=== PATIENT | female | born 1955 | race Caucasian/White ===

== ENCOUNTER 2016-06-13 16:16 | Outpatient (CLI) ==
[2016-04-10 14:36] VITALS: BMI 29.6
[2016-06-13 17:34] LABS: FLU INTERNAL QC INTERNAL QC VALID; RAPID FLU A NEGATIVE (NEGATIVE); RAPID FLU B NEGATIVE (NEGATIVE)
== END 2016-06-13 16:17 | disposition home or self-care (01) ==
LOC: LAB 16:16
PROVIDERS: ATTEND Nurse Practitioner Family
DX: R05 Cough (principal)
CPT/HCPCS: 87651; 87804; 87880

== ENCOUNTER 2016-06-28 15:06 | Outpatient (CLI) ==
[2016-04-10 14:36] VITALS: BMI 29.6
[2016-06-28 15:30] LABS: BASOPHILS % (AUTO) 0.3 % (0.0-3.0); EOSINOPHILS # (AUTO) 0.3 K/ul (0.0-0.7); EOSINOPHILS % (AUTO) 2.4 % (0.0-7.0); HEMATOCRIT 38.8 % (37.0-47.0); HEMOGLOBIN 13.5 g/dl (12.0-16.0); IMMATURE GRANULOCYTE % (AUTO) 0.3 % (0.0-5.0); LYMPHOCYTES # (AUTO) 2.5 K/uL (0.60-3.4); LYMPHOCYTES % (AUTO) 23.4 (10.0-50.0); MEAN CORPUSCULAR HEMOGLOBIN 29.6 pg (27.0-31.0); MEAN CORPUSCULAR HGB CONC 34.8 (31.8-35.4); MEAN CORPUSCULAR VOLUME 85.1 fl (81.0-99.0); MONOCYTES # (AUTO) 0.6 K/uL (0.4-2.0); MONOCYTES % (AUTO) 5.4 (0-10); NEUTROPHILS # (AUTO) 7.2 K/ul (2.0-6.9); NEUTROPHILS % (AUTO) 68.2; PLATELET COUNT 280 10^3/uL (140-440); RED BLOOD COUNT 4.56 10^6/ul (4.20-5.40); WHITE BLOOD COUNT 10.51 K/ul (4.6-10.2)
[2016-06-28 15:39] LABS: BILIRUBIN,URINE Negative (NEGATIVE); KETONES,URINE Negative (NEGATIVE); LEUKOCYTE ESTERASE ,URINE 1+ (NEGATIVE); NITRITE,URINE Negative (NEGATIVE); PH,URINE 5.5 (5-9); PROTEIN,URINE Negative (NEGATIVE); URINE, BLOOD 3+ (NEGATIVE)
[2016-06-28 15:44] LABS: ADD URINE MICROSCOPIC YES
[2016-06-28 15:50] LABS: ALBUMIN 3.8 g/dL (3.4-5.0); ALBUMIN/GLOBULIN RATIO 0.93; ANION GAP 13.5; BACTERIA,URINE 2+ (NOT PRESENT); BILIRUBIN,TOTAL 0.33 mg/dL (0.00-1.20); BUN/CREATININE RATIO 10.71; CALCIUM 9.1 mg/dL (8.2-10.2); CREATININE 0.84 mg/dL (0.60-1.30); POTASSIUM 3.5 mmol/L (3.5-5.10); TOTAL PROTEIN 7.9 g/dL (5.8-8.1)
--- NOTE | 2016-06-28 15:53 | DI ---
Examination: Two radiographic images of the chest. Comparison: 12/03/2015. Reason for study: Generalized abdominal pain. FINDINGS: No pneumothorax, pleural effusion, or focal consolidation. The cardiac silhouette is not enlarged. Mild degenerative disease is seen in the thoracic spine. Impression: No acute cardiopulmonary findings.
--- NOTE | 2016-06-28 16:01 | CT ---
Examination: Noncontrast CT imaging of the abdomen pelvis with axial, sagittal, and coronal reconst ructions. Comparison: 12/03/2015. Reason for study: Generalized abdominal pain. FINDINGS: Within the partially imaged lung bases. There are no pneumothoraces, pleural effusions, focal consolidations. The heart is not enlarged. Imaging of the abdominal organs is limited by lack of intravenous contrast. No gross abnormality is seen within the liver, spleen, adrenal glands, gallbladder, and pancreas. Th e liver is lower in attenuation in the spleen. The kidneys are grossly unremarkable without hydrone phrosis, hydroureter, or nephrolithiasis. There is no focal bowel dilatation or transition point. There are no inflammatory changes in the me senteric fat. No intra-abdominal free air or pelvic free fluid. The pelvic structures are unremark able. Impression: 1. No acute imaging findings in the abdomen or pelvis. 2. Hepatic steatosis.
== END 2016-06-28 15:07 | disposition home or self-care (01) ==
LOC: RAD 15:06
PROVIDERS: ATTEND Nurse Practitioner Family
DX: R10.84 Generalized abdominal pain (principal); R30.0 Dysuria; E11.9 Type 2 diabetes mellitus without complications
CPT/HCPCS: 36415; 80053; 81001; 82150; 83690; 85025; 87086; 87186

== ENCOUNTER 2016-08-07 09:45 | Outpatient (CLI) ==
[2016-04-10 14:36] VITALS: BMI 29.6
[2016-08-07 15:03] LABS: BASOPHILS # (AUTO) 0.1 K/uL (0-0.2); BASOPHILS % (AUTO) 0.7 % (0.0-3.0); EOSINOPHILS # (AUTO) 0.4 K/ul (0.0-0.7); EOSINOPHILS % (AUTO) 5.8 % (0.0-7.0); HEMATOCRIT 38.1 % (37.0-47.0); HEMOGLOBIN 13.1 g/dl (12.0-16.0); IMMATURE GRANULOCYTE % (AUTO) 0.4 % (0.0-5.0); LYMPHOCYTES % (AUTO) 25.9 (10.0-50.0); MEAN CORPUSCULAR HEMOGLOBIN 29.3 pg (27.0-31.0); MEAN CORPUSCULAR HGB CONC 34.4 (31.8-35.4); MEAN CORPUSCULAR VOLUME 85.2 fl (81.0-99.0); MONOCYTES # (AUTO) 0.7 K/uL (0.4-2.0); MONOCYTES % (AUTO) 8.5 (0-10); NEUTROPHILS # (AUTO) 4.5 K/ul (2.0-6.9); NEUTROPHILS % (AUTO) 58.7; PLATELET COUNT 297 10^3/uL (140-440); RED BLOOD COUNT 4.47 10^6/ul (4.20-5.40); WHITE BLOOD COUNT 7.62 K/ul (4.6-10.2)
[2016-08-07 15:08] LABS: BILIRUBIN,URINE Negative (NEGATIVE); KETONES,URINE Negative (NEGATIVE); LEUKOCYTE ESTERASE ,URINE Negative (NEGATIVE); NITRITE,URINE Negative (NEGATIVE); PROTEIN,URINE Negative (NEGATIVE); URINE, BLOOD Trace-intact (NEGATIVE)
[2016-08-07 15:12] LABS: ADD URINE MICROSCOPIC YES
[2016-08-07 15:31] LABS: ALBUMIN 3.8 g/dL (3.4-5.0); ALBUMIN/GLOBULIN RATIO 0.93; BILIRUBIN,TOTAL 0.6 mg/dL (0.00-1.20); BUN/CREATININE RATIO 14.77; CALCIUM 9.7 mg/dL (8.2-10.2); CHOL/HDL RATIO 3.9 (4.5-5.5); CREATININE 0.88 mg/dL (0.60-1.30); TOTAL PROTEIN 7.9 g/dL (5.8-8.1)
== END 2016-08-07 09:46 | disposition home or self-care (01) ==
LOC: LAB 09:45
PROVIDERS: ATTEND General Practice
DX: E11.40 Type 2 diabetes mellitus with diabetic neuropathy, unspecified (principal); E78.5 Hyperlipidemia, unspecified; R10.13 Epigastric pain; Z79.899 Other long term (current) drug therapy
CPT/HCPCS: 36415; 80053; 80061; 81001; 82150; 83036; 83690; 85025

== ENCOUNTER 2016-08-12 20:29 | Emergency (ER) ==
[2016-08-12 20:40] VITALS: BP 134/94; TEMP 98.6; BMI 29.3
[2016-08-12 20:53] LABS: BASOPHILS % (AUTO) 0.3 % (0.0-3.0); EOSINOPHILS # (AUTO) 0.6 K/ul (0.0-0.7); EOSINOPHILS % (AUTO) 8.7 % (0.0-7.0); HEMATOCRIT 37.6 % (37.0-47.0); HEMOGLOBIN 12.4 g/dl (12.0-16.0); IMMATURE GRANULOCYTE % (AUTO) 0.4 % (0.0-5.0); LYMPHOCYTES # (AUTO) 2.7 K/uL (0.60-3.4); LYMPHOCYTES % (AUTO) 37.1 (10.0-50.0); MEAN CORPUSCULAR HEMOGLOBIN 28.4 pg (27.0-31.0); MONOCYTES # (AUTO) 0.5 K/uL (0.4-2.0); MONOCYTES % (AUTO) 6.9 (0-10); NEUTROPHILS # (AUTO) 3.3 K/ul (2.0-6.9); NEUTROPHILS % (AUTO) 46.6; PLATELET COUNT 343 10^3/uL (140-440); RED BLOOD COUNT 4.37 10^6/ul (4.20-5.40); WHITE BLOOD COUNT 7.15 K/ul (4.6-10.2)
[2016-08-12 21:03] LABS: BILIRUBIN,URINE Negative (NEGATIVE); KETONES,URINE Negative (NEGATIVE); LEUKOCYTE ESTERASE ,URINE Trace (NEGATIVE); NITRITE,URINE Negative (NEGATIVE); PROTEIN,URINE Negative (NEGATIVE); URINE, BLOOD Negative (NEGATIVE)
[2016-08-12 21:09] LABS: ADD URINE MICROSCOPIC YES
[2016-08-12 21:10] LABS: ABG PH 7.387 (7.35-7.45)
[2016-08-12 21:11] LABS: ABG BASE EXCESS 0 (-2.0-2.0); ABG HCO3 25.5 (22.0-26.0); ABG PCO2 42.4 mmHg (35-45); ABG TCO2 27 (22.0-28.0)
[2016-08-12 21:12] LABS: ALBUMIN 3.6 g/dL (3.4-5.0); ALBUMIN/GLOBULIN RATIO 0.97; ANION GAP 12.8; BILIRUBIN,TOTAL 0.18 mg/dL (0.00-1.20); BUN/CREATININE RATIO 13.48; CALCIUM 9.6 mg/dL (8.2-10.2); CREATININE 0.89 mg/dL (0.60-1.30); POTASSIUM 3.8 mmol/L (3.5-5.10); TOTAL PROTEIN 7.3 g/dL (5.8-8.1)
--- NOTE | 2016-08-12 21:24 | ED.PDOC ---
General ED Provider: Dr. HARPAL FISH-ER Chief Complaint: Diabetes Stated Complaint: my blood sugar was over 300 and it scared me Time Seen by Physician: 20:35 Mode of Arrival: Walk-In Information Source: Patient Exam Limitations: No limitations Primary [facility] Nursing and Triage Documentation Reviewed and Agree: Yes Miscellaneous Complaint Exam - Complex/Multi-System Complaint/Exam Onset/Duration: tdoay Symptoms Are: Still present Initial Severity: Mild Current Severity: None Location of Pain: no pain Associated Signs and Symptoms: Denies: Decreased responsiveness, Confusion, Agitation, Dizziness, Weakness, Syncope, Headache, Short of air, Cough, Wheezing , Hemoptysis, Chest pain, Palpitations, Edema, Nausea, Vomiting, Diarrhea, Abdominal pain, Back pain, Dysuria, Hematemesis, Melena, Decreased oral intake, Fever, Diaphoresis, Immunocompromised, Anticoagulation Therapy, Recent medication changes, Indwelling medical staff coordinator, Prior MRSA, Prior VRE, Recent trauma, Remote trauma Recent Echo/LV Function: No JVD Present: No Tachypnea Present: No Stridor Present: No Abdominal Findings: Present: Normal findings Glascow Coma Scale (see protocol): 15 Meningeal Signs Positive: No Focal Weakness: Present: None Focal Sensory Loss: Present: None Gait: Normal Gag Reflex Present: Yes Babinski Sign: Negative Right, Negative Left Skin Findings: Present: Normal findings Joint Swelling Present: No In-Dwelling Device Present: No Differential Diagnosis: Metabolic Abnormality Quality Indicator For Non-Traumatic Chest Pain/Syncope: EKG Performed Review of Systems - Review Of Systems Constitutional: Reports: No symptoms Eyes: Reports: No symptoms Ears, Nose, Mouth, Throat: Reports: No symptoms Respiratory: Reports: No symptoms Cardiac: Reports: No symptoms GI: Reports: No symptoms : Reports: No symptoms Musculoskeletal: Reports: No symptoms Skin: Reports: No symptoms Neurological: Reports: No symptoms Endocrine: Reports: No symptoms Hematologic/Lymphatic: Reports: No symptoms All Other Systems: Reviewed and Negative Past Medical History - Past Medical History Previously Healthy: Yes Endocrine: Reports: None Cardiovascular: Reports: Hypertension Respiratory: Reports: None Hematological: Reports: None Gastrointestinal: Reports: GERD Genitourinary: Reports: None Neuro/Psych: Reports: Migraine Musculoskeletal: Reports: None Cancer: Reports: None Last Menstrual Period: UNKNOWN - Surgical History General Surgical History: Reports: Tubal ligation - Family History Family History: Reports: Unknown - Social History Smoking Status: Never smoker Hx Substance Use: No Alcohol Screening: None - Immunizations Tetanus Shot up to Date: Yes Physical Exam - Physical Exam Appearance: Well-appearing, No pain distress, Well-nourished Eyes: JANET, EOMI, Conjunctiva clear ENT: Ears normal, Nose normal, Oropharynx normal Neck: Supple Respiratory: Airway patent, Breath sounds clear, Breath sounds equal, Respirations nonlabored Cardiovascular: RRR, Pulses normal, No rub, No murmur GI/: Soft, Nontender, No masses, Bowel sounds normal, No Organomegaly Musculoskeletal: Normal strength Skin: Warm, Dry, Normal color Neurological: Sensation intact, Motor intact, Reflexes intact, Cranial nerves intact, Alert, Oriented Psychiatric: Affect appropriate, Mood appropriate Critical Care Note - Critical Care Note Total Time (mins): 0 Course - Course Hematology/Chemistry: 08/12/16 20:45 08/12/16 20:45 Orders, Labs, Meds: Lab Review 08/12/16 08/12/16 08/12/16 20:41 20:45 21:00 WBC 7.15 RBC 4.37 Hgb 12.4 Hct 37.6 MCV 86.0 MCH 28.4 MCHC 33.0 RDW Coeff of Mary 12.5 Plt Count 343 Immature Gran % (Auto) 0.4 Neut % (Auto) 46.6 Lymph % (Auto) 37.1 [place] % (Auto) 6.9 Eos % (Auto) 8.7 H Baso % (Auto) 0.3 Immature Gran # (Auto) 0.0 Neut # 3.3 Lymph # 2.7 [place] # 0.5 Eos # 0.6 Baso # 0.0 Puncture Site Lb O2 Saturation 93.0 L ABG pH 7.387 ABG pCO2 42.4 ABG pO2 68.0 L ABG HCO3 25.5 ABG Total CO2 27 ABG Base Excess 0 Mick Test + FiO2 % 21.0 Sodium 139 Potassium 3.8 Chloride 103 Carbon Dioxide 27 Anion Gap 12.8 BUN 12 Creatinine 0.89 Estimated GFR (MDRD) 64.00 BUN/Creatinine Ratio 13.48 Glucose 240 H Calcium 9.6 Total Bilirubin 0.18 AST 15 ALT 13 Alkaline Phosphatase 69 Total Protein 7.3 Albumin 3.6 Globulin 3.7 Albumin/Globulin Ratio 0.97 Urine Color Yellow Urine Clarity Clear Urine pH 5.0 Ur Specific [place] 1.010 Urine Protein Negative Urine Glucose (UA) 1+ Urine Ketones Negative Urine Blood Negative Urine Nitrite Negative Urine Bilirubin Negative Urine Urobilinogen 0.2 Ur Leukocyte Esterase Trace Urine Microscopic WBC 2-5 Ur Squamous Epith Cells 0-2 Orders Category Date Time Status ABG DRAW REQUEST Stat CARDIO 08/12/16 20:41 Ordered EKG-(ED ONLY) Stat CARDIO 08/12/16 20:41 Ordered ACCUCHECK (ED) [ED ACCUCHECK ASSESSMENT] .ONCE EMERGENCY 08/12/16 20:42 Active [employer] [ED WHISKEY FILTERER APPLIED] .ONCE EMERGENCY 08/12/16 20:41 Active ABG Stat LAB 08/12/16 20:41 Completed CBC W/ AUTO DIFF Stat LAB 08/12/16 20:45 Completed COMPREHENSIVE METABOLIC PANEL Stat LAB 08/12/16 20:45 Completed URINALYSIS C & S IF INDICATED Stat LAB 08/12/16 21:00 Completed Vital Signs: Temp Pulse Resp BP Pulse Ox 08/12/16 20:31 98.6 F 77 18 134/94 H 96 Departure - Departure Time of Disposition: 21:23 Disposition: HOME SELF-CARE Discharge Problem: DM type 2 (diabetes mellitus, type 2) Qualifiers: Diabetes mellitus complication status: without complication Diabetes mellitus manager intermediate insulin use: without alf use Qualifier Code: (E11.9) Type 2 diabetes mellitus without complications Instructions: Type 2 Diabetes in Adults (ED) Condition: Good Pt referred to PMD for follow-up: Yes Additional Instructions: f/u with your md--go ahead and take metformin this evening Allergies/Adverse Reactions: Allergies codeine Allergy (Severe, Verified 08/12/16 20:36) Itching Patient states she has side effects to several pain medications. She cannot remember the names. Home Medications: Ambulatory Orders Ondansetron HCl [Zofran Tab] 4 mg PO Q8H PRN #14 tablet 12/03/15 Disposition Discussed With: Patient
== END 2016-08-12 21:33 | disposition home or self-care (01) ==
LOC: ED 20:29
DX: E11.65 Type 2 diabetes mellitus with hyperglycemia (principal); I10 Essential (primary) hypertension; Z79.899 Other long term (current) drug therapy
CPT/HCPCS: 36415; 80053; 81001; 82803; 82962; 85025; 93005; 93010; 99284

== ENCOUNTER 2016-08-17 15:15 | Outpatient (CLI) ==
[2016-08-17 15:29] LABS: OCCULT BLOOD INTERNAL QC 1 INTERNAL QC VALID; OCCULT BLOOD SAMPLE 1 NEGATIVE (NEGATIVE)
[2016-08-17 15:38] LABS: OCCULT BLOOD INTERNAL QC 2 INTERNAL QC VALID; OCCULT BLOOD INTERNAL QC 3 INTERNAL QC VALID; OCCULT BLOOD SAMPLE 2 NO SPECIMEN RECEIVED (NEGATIVE); OCCULT BLOOD SAMPLE 3 NO SPECIMEN RECEIVED (NEGATIVE)
== END 2016-08-17 15:16 | disposition home or self-care (01) ==
LOC: LAB 15:15
PROVIDERS: ATTEND General Practice
DX: R10.812 Left upper quadrant abdominal tenderness (principal)
CPT/HCPCS: 82272

== ENCOUNTER 2016-08-28 07:58 | Outpatient (CLI) ==
--- NOTE | 2016-08-29 10:04 | MAMMO ---
EXAM: Bilateral digital screening mammogram History: Baseline Screening Comparison: None available. Findings: MLO and CC views of bilateral breasts demonstrate scattered fibroglandular breast parench yma. There are no dominant masses, no suspicious microcalcifications and no architectural distortio ns Impression: Negative mammogram. Recommend followup routine screening mammography in 1 year. BIRADS 1
== END 2016-08-28 07:59 | disposition home or self-care (01) ==
LOC: RAD 07:58
PROVIDERS: ATTEND General Practice
DX: Z12.31 Encounter for screening mammogram for malignant neoplasm of breast (principal)

== ENCOUNTER 2016-09-19 16:38 | Outpatient (CLI) | payer OTHER ==
[2016-09-19 17:33] LABS: ANION GAP 14.9; BUN/CREATININE RATIO 15.29; CALCIUM 10.2 mg/dL (8.2-10.2); CREATININE 0.85 mg/dL (0.60-1.30); PHOSPHORUS 4.2 mg/dL (2.8-4.1); POTASSIUM 3.9 mmol/L (3.5-5.10)
== END 2016-09-19 16:39 | disposition home or self-care (01) ==
LOC: LAB 16:38
PROVIDERS: ATTEND General Practice
DX: E11.9 Type 2 diabetes mellitus without complications (principal)
CPT/HCPCS: 36415; 80069; 83036

== ENCOUNTER 2017-09-09 16:03 | Outpatient (CLI) ==
[2017-02-25 17:09] VITALS: BMI 13.1
== END 2017-09-09 16:04 | disposition home or self-care (01) ==
LOC: FCC-LAB 16:03
PROVIDERS: ATTEND General Practice
DX: R10.13 Epigastric pain (principal); Z79.899 Other long term (current) drug therapy; E11.9 Type 2 diabetes mellitus without complications; E78.5 Hyperlipidemia, unspecified
CPT/HCPCS: 36415; 80053; 80061; 81001; 83036; 85025

== ENCOUNTER 2017-09-10 08:09 | Outpatient (CLI) ==
[2017-02-25 17:09] VITALS: BMI 13.1
--- NOTE | 2017-09-10 09:49 | US ---
EXAM: ULTRASOUND ABDOMEN LIMITED HISTORY: Epigastric abdominal pain FINDINGS: Ultrasound abdomen, limited. Segal-scale ultrasound and color Doppler was performed. Live r size was measured at 14.5 cm, within normal limits. The liver parenchyma demonstrated normal sonogr aphic appearance without evidence of intrahepatic biliary dilatation or focal lesion. Patent and hepa topedal main portal vein. No evidence of gallbladder stones or sludge. Gallbladder wall thickness was normal at 0.3 centimeter s and the common duct diameter normal at 0.33 centimeters. The visualized portions of the pancreas appeared unremarkable. IMPRESSION: Findings within normal limits.
== END 2017-09-10 08:10 | disposition home or self-care (01) ==
LOC: RAD 08:09
PROVIDERS: ATTEND General Practice
DX: R10.13 Epigastric pain (principal)

== ENCOUNTER 2017-09-18 12:35 | Outpatient (CLI) | payer OTHER ==
[2017-02-25 17:09] VITALS: BMI 13.1
== END 2017-09-18 12:36 | disposition home or self-care (01) ==
LOC: FCC-LAB 12:35
PROVIDERS: ATTEND General Practice
DX: E78.2 Mixed hyperlipidemia (principal)
CPT/HCPCS: 36415; 80061

== ENCOUNTER 2017-10-10 13:50 | Outpatient (CLI) | payer OTHER ==
[2017-02-25 17:09] VITALS: BMI 13.1
== END 2017-10-10 13:51 | disposition home or self-care (01) ==
LOC: FCC-LAB 13:50
PROVIDERS: ATTEND General Practice
DX: J02.9 Acute pharyngitis, unspecified (principal); R50.9 Fever, unspecified
CPT/HCPCS: 87651; 87804

== ENCOUNTER 2017-10-17 13:18 | Outpatient (CLI) ==
[2017-10-17 14:39] VITALS: BMI 28.5
== END 2017-10-17 13:19 | disposition home or self-care (01) ==
LOC: DIETCN 13:18
PROVIDERS: ATTEND General Practice
DX: E11.9 Type 2 diabetes mellitus without complications (principal); E78.5 Hyperlipidemia, unspecified; K21.9 Gastro-esophageal reflux disease without esophagitis
CPT/HCPCS: 97802

== ENCOUNTER 2017-12-25 12:05 | Outpatient (CLI) | END 2017-12-25 12:06 | disposition home or self-care (01) | LOC: FCC-LAB 12:05 | PROVIDERS: ATTEND General Practice | DX: E11.9 Type 2 diabetes mellitus without complications (principal); E11.40 Type 2 diabetes mellitus with diabetic neuropathy, unspecified; E78.5 Hyperlipidemia, unspecified; K21.9 Gastro-esophageal reflux disease without esophagitis; Z79.899 Other long term (current) drug therapy | CPT/HCPCS: 36415; 80053; 80061; 81001; 83037; 85025 ==

== ENCOUNTER 2018-01-01 11:16 | Outpatient (CLI) ==
--- NOTE | 2018-01-01 11:50 | DI ---
EXAM: Three views of the right hand. History: Right hand trauma. Findings: No acute fracture or dislocation. Moderate narrowing of the first carpal metacarpal joint with small osteophytes. Mild to moderate polyarticular joint space narrowing seen elsewhere. Impression: No acute osseous abnormality. Arthritis
--- NOTE | 2018-01-01 11:50 | DI ---
EXAM: Three views of the right wrist. History: Right wrist trauma. Findings: No acute fracture or dislocation. Moderate narrowing of the first carpal metacarpal joint with small osteophytes. Small incidental benign cyst within the lunate bone. Mild narrowing of the radiocarpal joint. Impression: No acute osseous abnormality
== END 2018-01-01 11:17 | disposition home or self-care (01) ==
LOC: RAD 11:16
PROVIDERS: ATTEND General Practice
DX: S69.91XA Unspecified injury of right wrist, hand and finger(s), initial encounter (principal); W19.XXXA Unspecified fall, initial encounter

== ENCOUNTER 2018-08-25 16:47 | Outpatient (CLI) ==
--- NOTE | 2018-08-26 08:24 | DI ---
EXAM: Three views of the left shoulder. History: Left shoulder pain. Findings: No acute fracture or dislocation. Moderate narrowing of the left AC joint with small oste ophytes. Glenohumeral joint is intact. No abnormal calcifications or radiopaque foreign bodies. Impression: 1. No acute osseous abnormality. 2. 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
--- NOTE | 2018-08-26 08:24 | DI ---
EXAM: Three views of the right shoulder. History: Right shoulder pain. Findings: No acute fracture or dislocation. No abnormal calcifications or radiopaque foreign bodies . Moderate narrowing of the right AC joint. Glenohumeral joint is intact. Sclerosis involving the superior lateral aspect of the humeral head. Impression: 1. No acute osseous abnormality. 2. Moderate arthritis of the right AC joint. 3. Possible rotator cuff disease
== END 2018-08-25 16:48 | disposition home or self-care (01) ==
LOC: LAB 16:47
PROVIDERS: ATTEND General Practice
DX: M25.511 Pain in right shoulder (principal); M25.512 Pain in left shoulder; E78.5 Hyperlipidemia, unspecified
CPT/HCPCS: 36415; 85651; 86140

== ENCOUNTER 2018-09-17 15:25 | Outpatient (CLI) | END 2018-09-17 15:26 | disposition home or self-care (01) | LOC: RHC-LAB 15:25 | PROVIDERS: ATTEND General Practice | DX: J02.9 Acute pharyngitis, unspecified (principal); R05 Cough | CPT/HCPCS: 87502; 87651 ==